=== PATIENT | male | born 1995 | race Caucasian/White ===

== ENCOUNTER 2017-03-30 17:48 | Emergency (ER) | payer BC, OTHER ==
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
[2017-03-30 18:48] LABS: Appearance,Urine Clear (Clear); Bilirubin,Urine Negative (Negative); Glucose,Urine (UA) Negative (Negative); Ketones,Urine Negative (Negative); Leukocyte Esterase,Urine Negative (Negative); Nitrite,Urine Negative (Negative); Protein,Urine Negative (Negative); Specific Gravity,Urine 1.004 (1.001-1.035); UA Billing (MACRO vs. MICRO) CHEM; Urobilinogen,Urine <2.0 mg/dL (<2.0)
[2017-03-30] MEDS ORDERED: DOXYCYCLINE 50 MG CAP PO STA (19:15)
[2017-03-30] MEDS ORDERED: cefTRIAXone 250 MG VIAL IM STA (19:15)
[2017-03-30] MEDS ORDERED: AZITHROMYCIN 250 MG TAB PO STA (19:16)
[2017-03-30 19:52] LABS: Basophils # (A) 0.1 k/uL (0-0.2); Basophils % (A) 1 %; CH 31.7; CHCM 36.8; Eosinophils # (A) 0.3 k/uL (0-0.7); Eosinophils % (A) 4 %; HCT 45.4 % (39.0-53.0); HDW 2.76; HGB 15.9 gm/dL (13.0-17.5); Luc # (Auto) 0.28; Luc % (Auto) 4; Lymphocytes % (A) 42 %; MCH 30.3 pg (25.0-35.0); MCHC 35.1 g/dL (31.0-37.0); MCV 86.4 fL (80.0-100.0); Mean Platelet Volume 8.2; Monocytes # (A) 0.6 k/uL (0-1.0); Monocytes % (A) 8 %; Neutrophils % (A) 42 %; RBC 5.26 m/uL (4.30-5.90); RDW 13.1 % (11.5-15.5); WBC 7.2 k/uL (3.8-10.6); WBC (Perox) 6.95
[2017-03-30 20:04] LABS: AST 47 U/L (17-59); Alkaline Phosphatase 65 U/L (38-126); Anion Gap 5 mmol/L; Blood Urea Nitrogen 12 mg/dL (9-20); Carbon Dioxide 28 mmol/L (22-30); Chloride 104 mmol/L (98-107); Glucose 89 mg/dL (74-99); Non-African American GFR(MDRD) >60 (>60 ml/min/1.73 sqM); Potassium 4.2 mmol/L (3.5-5.1); Sodium 137 mmol/L (137-145); Total Bilirubin 0.4 mg/dL (0.2-1.3); Total Protein 5.9 g/dL (6.3-8.2)
[2017-03-30 20:09] LABS: ALT 93 U/L (21-72)
[2017-03-30 20:28] VITALS: BP 111/59; PULSE 62; RESP 18; TEMP 97.3
== END 2017-03-30 20:52 | disposition home or self-care (01) ==
LOC: EC 17:48
DX: R36.1 Hematospermia (principal); R31.9 Hematuria, unspecified
CPT/HCPCS: 99283; 96372; 36415; 80053; 87591; 87491; 85025; 81003; 87086; J0696

== ENCOUNTER 2018-01-17 01:00 | Emergency (ER) | payer OTHER ==
[2018-01-17] MEDS ORDERED: IBUPROFEN 600 MG TAB PO STA (02:15)
[2018-01-17 02:37] VITALS: BP 115/61; TEMP 97.6
--- NOTE | 2018-01-17 02:39 | XR ---
EXAMINATION TYPE: XR hand complete RT DATE OF EXAM: 01/17/2018 COMPARISON: NONE HISTORY: Right hand pain TECHNIQUE: 3 views FINDINGS: I see no fracture nor dislocation. Metacarpals are intact. There is some soft tissue swelli ng on the dorsum of the hand. IMPRESSION: Negative right hand exam. Soft tissue swelling.
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
[2018-01-17 03:04] VITALS: PULSE 60; RESP 17
== END 2018-01-17 03:04 | disposition home or self-care (01) ==
LOC: EC 01:00
DX: S60.221A Contusion of right hand, initial encounter (principal); Z87.891 Personal history of nicotine dependence; W22.8XXA Striking against or struck by other objects, initial encounter; Y93.89 Activity, other specified
CPT/HCPCS: 99283

== ENCOUNTER 2018-03-28 22:43 | Emergency (ER) | payer OTHER ==
[2018-03-28 22:53] VITALS: BP 121/83; PULSE 75; RESP 16; TEMP 98.1
--- NOTE | 2018-03-28 23:24 | ED ---
ENT HPI - General Chief complaint: Dental/Oral Stated complaint: jaw pain Time Seen by Provider: 03/28/18 22:59 Source: patient, RN notes reviewed Mode of arrival: ambulatory Limitations: no limitations - History of Present Illness Initial comments: This is a 22-year-old male who presents to the emergency department with chief complaint of left-sided jaw pain. Patient reports pain underneath the left side of his jaw for the past 3-4 days. He states that it is uncomfortable and he is having trouble sleeping because of it. He denies any injuries or trauma. Denies any dental pain. Denies any fevers or chills. Denies cough, sinus congestion, runny nose, ear pain, abdominal pain, nausea or vomiting, diarrhea or constipation, shortness of breath or chest pain. Patient states he is generally healthy. - Related Data Home Medications Medication Instructions Recorded Confirmed Acetaminophen Tab [Tylenol Tab] 650 mg PO Q6H PRN 03/28/18 03/28/18 Lysine [l-Lysine] 500 mg PO DAILY 03/28/18 03/28/18 Allergies Allergy/AdvReac Type Severity Reaction Status Date / Time No Known Allergies Allergy Verified 03/28/18 23:11 Review of Systems ROS Statement: Those systems with pertinent positive or pertinent negative responses have been documented in the HPI. ROS Other: All systems not noted in ROS Statement are negative. Past Medical History Past Medical History: Asthma Additional Past Medical History / Comment(s): scoliosis History of Any Multi-Drug Resistant Organisms: None Reported Past Surgical History: No Surgical Hx Reported Past Psychological History: No Psychological Hx Reported Smoking Status: Former smoker Past Alcohol Use History: Occasional Past Drug Use History: None Reported General Exam - General Exam Comments Initial Comments: General: Awake and alert, well-developed; in no apparent distress. HEENT: Head atraumatic, normocephalic. Pupils are equal, round and reactive to light. Extraocular movements intact. Oropharynx moist with mild erythema. No tonsillar enlargement or exudates. Unable to visualize left TM due to cerumen impaction. Right TM is pearly without effusion. Neck: Supple. Normal ROM. Tender left tonsillar and anterior cervical lymphadenopathy. Cardiovascular: Regular rate and rhythm. No murmurs, rubs or gallops. Chest symmetrical. Respiratory: Lungs clear to auscultation bilaterally. No wheezes, rales or rhonchi. Normal respiratory effort with no use of accessory muscles. Musculoskeletal: Normal ROM, no tenderness bilateral upper and lower extremities. Ambulating normally. Skin: [place], warm and dry without rashes or lesions. Neurological: Alert and oriented x3. CN II-XII grossly intact. Speech is fluent and answers are appropriate. No focal neuro deficits. Psychiatric: Normal mood and affect. No overt signs of depression or anxiety noted. Limitations: no limitations Course Vital Signs 03/28/18 22:50 Temperature 98.1 F Pulse Rate 75 Respiratory 16 Rate Blood Pressure 121/83 O2 Sat by Pulse 97 Oximetry Medical Decision Making - Medical Decision Making This is a 22-year-old male who presents to the emergency department with chief complaint of left jaw pain. On physical examination, patient has tender left sided tonsillar and anterior cervical lymphadenopathy. Rest of physical examination is within normal limits. Physical examination His vital signs are stable and he is afebrile. Recommended following up with his primary care provider within 1-2 days. Patient will be discharged home at this time. He is in agreement and voices understanding. All questions answered. Disposition Clinical Impression: Lymphadenopathy Disposition: HOME SELF-CARE Condition: Good Instructions: Lymphadenopathy (ED) Additional Instructions: Please follow up with primary care provider within 1-2 days. Return to emergency department if symptoms should worsen or any concerns arise. Is patient prescribed a controlled substance at d/c from ED?: No Referrals: Nel Jenkins MD [Primary Care Provider] - 1-2 days Time of Disposition: 23:24
== END 2018-03-28 23:33 | disposition home or self-care (01) ==
LOC: EC 22:43
DX: R59.1 Generalized enlarged lymph nodes (principal); R68.84 Jaw pain; Z87.891 Personal history of nicotine dependence; Z79.899 Other long term (current) drug therapy
CPT/HCPCS: 99283

== ENCOUNTER 2018-06-15 23:57 | Emergency (ER) | payer OTHER ==
[2018-06-16 00:03] VITALS: BP 130/82; PULSE 63; RESP 18; TEMP 98.3
[2018-06-16] MEDS ORDERED: KETOROLAC 30 MG/ML 1 ML VIAL IM STA (00:41)
[2018-06-16] MEDS ORDERED: ACET/COD 300 MG/30 MG STARTER PACK 6 TAB BTL PO STA (00:41)
[2018-06-16] MEDS ORDERED: HYDROcodone/APAP 5-325MG 1 EACH TAB PO STA (00:41)
[2018-06-16] MEDS ORDERED: PENICILLIN VK 500MG STARTER 4 TAB BTL PO STA (00:42)
--- NOTE | 2018-06-16 00:43 | ED ---
ENT HPI - General Chief complaint: Dental/Oral Stated complaint: Dental Pain Time Seen by Provider: 06/16/18 00:30 Source: patient Mode of arrival: ambulatory Limitations: no limitations - History of Present Illness Initial comments: 21-year-old male patient presents to the emergency department today for evaluation of left upper dental pain. Patient states that he has a cracked wisdom tooth to the area. States that the pain has been worsening over the last 2-3 days. States that he has seen an oral surgeon for this and does have a plan to have them removed however he has to save a little more money first. Patient states that he has noticed swelling around the area. He denies any fever, chills, difficulty swallowing, or trismus. Patient denies any recent rash , shortness breath, chest pain, abdominal pain, diarrhea, constipation, back pain, numbness, tingling, dizziness, weakness, hematuria, dysuria, urinary urgency, urinary frequency, headache, visual changes, or any other complaints. - Related Data Home Medications Medication Instructions Recorded Confirmed Acetaminophen Tab [Tylenol Tab] 650 mg PO Q6H PRN 03/28/18 03/28/18 Lysine [l-Lysine] 500 mg PO DAILY 03/28/18 03/28/18 Previous Rx's Medication Instructions Recorded Acetaminophen-Codeine 300-30mg 1 tab PO Q6H PRN #12 tablet 06/16/18 [Tylenol #3] Penicillin V Potassium [Pen Vee K] 500 mg PO Q6H #40 tablet 06/16/18 Allergies Allergy/AdvReac Type Severity Reaction Status Date / Time No Known Allergies Allergy Verified 06/16/18 00:03 Review of Systems ROS Statement: Those systems with pertinent positive or pertinent negative responses have been documented in the HPI. ROS Other: All systems not noted in ROS Statement are negative. Past Medical History Past Medical History: Asthma Additional Past Medical History / Comment(s): scoliosis History of Any Multi-Drug Resistant Organisms: None Reported Past Surgical History: No Surgical Hx Reported Past Psychological History: No Psychological Hx Reported Smoking Status: Former smoker Past Alcohol Use History: Occasional Past Drug Use History: None Reported General Exam Limitations: no limitations General appearance: alert, in no apparent distress, other (This is a well- developed, well-nourished adult male patient in no acute distress. Vital signs upon presentation are temperature 98.3F, pulse 63, respirations 18, blood pressure 130/82, pulse ox 98% on room air.) Eye exam: Present: normal appearance, PERRL, EOMI. Absent: scleral icterus, conjunctival injection, periorbital swelling ENT exam: Present: normal exam, mucous membranes moist, other (Patient has what appears to be an impacted was some tooth to the left upper dentition. There is surrounding gingival erythema and hyperplasia. No evidence of drainable abscess.). Absent: normal oropharynx Neck exam: Present: normal inspection. Absent: tenderness, meningismus, lymphadenopathy Respiratory exam: Present: normal lung sounds bilaterally. Absent: respiratory distress, wheezes, rales, rhonchi, stridor Cardiovascular Exam: Present: regular rate, normal rhythm, normal heart sounds. Absent: systolic murmur, diastolic murmur, rubs, gallop, clicks Neurological exam: Present: alert, oriented X3, CN II-XII intact Psychiatric exam: Present: normal affect, normal mood Skin exam: Present: warm, dry, intact, normal color. Absent: rash Course Vital Signs 06/16/18 00:01 Temperature 98.3 F Pulse Rate 63 Respiratory 18 Rate Blood Pressure 130/82 O2 Sat by Pulse 98 Oximetry Medical Decision Making - Medical Decision Making 22-year-old male patient presents to the emergency department today for evaluation of left upper dental pain. Physical examination did reveal gingival erythema and hyperplasia surrounding the left upper wisdom tooth. Patient will be discharged home with prescription for antibiotics and pain management. He is instructed to follow-up with dentistry as soon as possible. Return parameters were discussed in detail. He verbalizes understanding and agrees with this plan. Disposition Clinical Impression: Dental abscess Disposition: HOME SELF-CARE Condition: Good Instructions: Dental Abscess (ED), Toothache (ED) Additional Instructions: Take medication as directed. Do cool compresses to the outside of the face this may help with your pain. Follow-up with your oral surgeon as soon as possible. Return immediately for any new, worsening, or concerning symptoms. Please follow up with the [facility] dental clinic. [facility] [place] [address]. Phone number for new patients or for existing patients. [facility]. Must pay for x-rays then services are free. Call for an appoitnment. Prescriptions: Acetaminophen-Codeine 300-30mg [Tylenol #3] 1 tab PO Q6H PRN #12 tablet PRN Reason: Pain Penicillin V Potassium [Pen Vee K] 500 mg PO Q6H #40 tablet Is patient prescribed a controlled substance at d/c from ED?: Yes When asked, does pt state using other controlled substances?: No If prescribed controlled substance>3 days was MAPS reviewed?: Prescribed <3 Days If opioid is for acute pain is fill amount 7 days or less?: Yes If Rx opioid, was Start Talking consent form obtained?: Yes Referrals: Nel Jenkins MD [Primary Care Provider] - 1-2 days Time of Disposition: 00:43
== END 2018-06-16 00:57 | disposition home or self-care (01) ==
LOC: EC 23:57
DX: K04.7 Periapical abscess without sinus (principal); Z87.891 Personal history of nicotine dependence; Z79.3 Long term (current) use of hormonal contraceptives
CPT/HCPCS: 99283; 96372; J1885

== ENCOUNTER 2018-09-20 20:12 | Emergency (ER) | payer OTHER ==
[2018-09-20 20:30] VITALS: BP 121/72; PULSE 62; RESP 20; TEMP 98.4
[2018-09-20] MEDS ORDERED: KETOROLAC 60 MG/2 ML VIAL IM STA (20:51)
[2018-09-20] MEDS ORDERED: DIAZEPAM 5 MG TAB PO STA (20:53)
--- NOTE | 2018-09-20 20:54 | ED ---
Back Pain HPI - General Chief Complaint: Back Pain/Injury Stated Complaint: Low Back Pain Time Seen by Provider: 09/20/18 20:31 Source: patient, family Limitations: no limitations - History of Present Illness Initial Comments: 22-year-old male presenting today for chief complaint of low back back pain. Patient states he does repetitive moving including lifting at work. He states that there is no specific injury however he had low back pain that extends bandlike across the lumbar spine. Patient states he has experienced this in the past. Patient as a direct trauma, history of cancer, fever or chills night sweats, history of IV drug use, loss of bowel bladder control, radiation of pain down the legs, urinary retention, loss of sensation to lower extremities or muscle weakness of the lower extremities, no recent trave, no history of TB. Patient denies any urgency, frequency, dysuria, hematuria. Patient denies any thoracic or cervical pain. Remaining ROS (-), patient denies any recent shortness of breath, chest pain, abdominal pain, nausea or vomiting, numbness or tingling, constipation or diarrhea, headaches or visual changes, or any other complaints. Upon arrival patient's ambulatory he appears well no signs of acute distress. - Related Data Home Medications Medication Instructions Recorded Confirmed Acetaminophen Tab [Tylenol Tab] 650 mg PO Q6H PRN 03/28/18 03/28/18 Lysine [l-Lysine] 500 mg PO DAILY 03/28/18 03/28/18 Previous Rx's Medication Instructions Recorded Acetaminophen-Codeine 300-30mg 1 tab PO Q6H PRN #12 tablet 06/16/18 [Tylenol #3] Penicillin V Potassium [Pen Vee K] 500 mg PO Q6H #40 tablet 06/16/18 Cyclobenzaprine [Flexeril] 10 mg PO TID PRN 7 Days #21 tab 09/20/18 Ibuprofen 800 mg PO Q8H PRN 7 Days #21 tablet 09/20/18 Allergies Allergy/AdvReac Type Severity Reaction Status Date / Time No Known Allergies Allergy Verified 09/20/18 20:30 Review of Systems ROS Statement: Those systems with pertinent positive or pertinent negative responses have been documented in the HPI. ROS Other: All systems not noted in ROS Statement are negative. Past Medical History Past Medical History: Asthma Additional Past Medical History / Comment(s): scoliosis History of Any Multi-Drug Resistant Organisms: None Reported Past Surgical History: No Surgical Hx Reported Past Psychological History: No Psychological Hx Reported Smoking Status: Former smoker Past Alcohol Use History: Occasional Past Drug Use History: None Reported General Exam - General Exam Comments Initial Comments: General: The patient is awake and alert, in no distress, and does not appear acutely ill. Eye: Pupils are equal, round and reactive to light, extra-ocular movements are intact. No nystagmus. There is normal conjunctiva bilaterally. No signs of icterus. Ears, nose, mouth and throat: There are moist mucous membranes and no oral lesions. Neck: The neck is supple, there is no tenderness or JVD. Cardiovascular: There is a regular rate and rhythm. No murmur, rub or gallop is appreciated. Respiratory: Lungs are clear to auscultation, respirations are non-labored, breath sounds are equal. No wheezes, stridor, rales, or rhonchi. Musculoskeletal: Normal inspection of the cervical thoracic and lumbar spine. There is bandlike paravertebral tenderness to palpation of the lumbar spine. No midline tenderness patient of the cervical thoracic or lumbar spine. Patient is full range of motion at the thoracic and lumbar spine. Negative straight leg bilaterally. Normal ROM, no tenderness of the lower extremities equal and comparison. Strength 5/5 of the upper and lower extremities equal comparison bilaterally. Sensation intact of the lower extremities equal comparison bilaterally no saddle anesthesia. DP pulses equal bilaterally 2+. Neurological: A&O x 3. CN II-XII intact, There are no obvious motor or sensory deficits. Coordination appears grossly intact. Speech is normal. Skin: Skin is warm and dry and no rashes or lesions are noted. Psychiatric: Cooperative, appropriate mood & affect, normal judgment. Limitations: no limitations Course Vital Signs 09/20/18 20:26 Temperature 98.4 F Pulse Rate 62 Respiratory 20 Rate Blood Pressure 121/72 O2 Sat by Pulse 99 Oximetry Medical Decision Making - Medical Decision Making 22-year-old male with history of repetitive movement of the lumbar spine presented today for chief complaint of bilateral low back pain. This is in the lumbar region. There is paravertebral tenderness and muscle tension palpable. Patient given Valium and Toradol. At this time patient has no history and indicative of radiographic imaging. No radicular symptoms. No concerning history of red flags. Pt will be discharged with symptomatic treatment and instruction to f/u with primary care for persistent symptoms. Pt agreeable with plan and discharge, denied questions at this time. Disposition Clinical Impression: Muscle spasm, Back strain Disposition: HOME SELF-CARE Condition: Good Instructions (If sedation given, give patient instructions): Low Back Strain ( ED) Additional Instructions: Please use medication as discussed. Please follow-up with family doctor in the next 2 days. Please return to emergency room if the symptoms increase or worsen or for any other concerns. Prescriptions: Cyclobenzaprine [Flexeril] 10 mg PO TID PRN 7 Days #21 tab PRN Reason: Muscle Spasm Ibuprofen 800 mg PO Q8H PRN 7 Days #21 tablet PRN Reason: Pain Is patient prescribed a controlled substance at d/c from ED?: No Referrals: Nel Jenkins MD [Primary Care Provider] - 1-2 days Time of Disposition: 20:54
== END 2018-09-20 21:07 | disposition home or self-care (01) ==
LOC: EC 20:12
DX: S39.012A Strain of muscle, fascia and tendon of lower back, initial encounter (principal); M62.830 Muscle spasm of back; Z87.891 Personal history of nicotine dependence; Z79.899 Other long term (current) drug therapy; X50.9XXA Other and unspecified overexertion or strenuous movements or postures, initial encounter; Y92.69 Other specified industrial and construction area as the place of occurrence of the external cause; Y99.0 Civilian activity done for income or pay
CPT/HCPCS: 99283; 96372; J1885

== ENCOUNTER → 2019-12-18 | Outpatient (CLI) | payer OTHER ==
[2019-12-19 00:40] LABS: ALT 51 U/L (10-49); AST 31 U/L (14-35); Albumin/Globulin Ratio 1.91 (1.60-3.17); Alkaline Phosphatase 84 U/L (41-126); Bilirubin, Conjugated <0.20 mg/dL (0.20-0.40); Cholesterol 197 mg/dL (0-200); Globulin 2.3 g/dL (1.6-3.3); LDL Cholesterol,Calculated 119.8 mg/dL (0.0-131.0); Total Bilirubin 0.3 mg/dL (0.2-1.2); Total Protein 6.7 g/dL (6.2-8.2)
== END | disposition home or self-care (01) ==
LOC: LABWHC1 13:46
PROVIDERS: ATTEND Internal Medicine
DX: E78.2 Mixed hyperlipidemia (principal); Z82.49 Family history of ischemic heart disease and other diseases of the circulatory system
CPT/HCPCS: 36415; 80061; 80076

== ENCOUNTER 2021-08-22 05:15 | Emergency (ER) | payer OTHER ==
[2021-08-22] MEDS ORDERED: IBUPROFEN 400 MG TAB PO STA (05:35)
--- NOTE | 2021-08-22 06:54 | ED ---
Fever HPI - General Chief Complaint: Fever Stated Complaint: Fever, high heartrate Time Seen by Provider: 08/22/21 05:29 Source: patient Mode of arrival: ambulatory Limitations: no limitations - Related Data Home Medications Medication Instructions Recorded Confirmed Acetaminophen Tab [Tylenol Tab] 650 mg PO Q6H PRN 03/28/18 03/28/18 Lysine [l-Lysine] 500 mg PO DAILY 03/28/18 03/28/18 Previous Rx's Medication Instructions Recorded Acetaminophen-Codeine 300-30mg 1 tab PO Q6H PRN #12 tablet 06/16/18 [Tylenol #3] Penicillin V Potassium [Pen Vee K] 500 mg PO Q6H #40 tablet 06/16/18 Cyclobenzaprine [Flexeril] 10 mg PO TID PRN 7 Days #21 tab 09/20/18 Ibuprofen 800 mg PO Q8H PRN 7 Days #21 tablet 09/20/18 Allergies Allergy/AdvReac Type Severity Reaction Status Date / Time No Known Allergies Allergy Verified 08/22/21 05:24 Review of Systems ROS Statement: Those systems with pertinent positive or pertinent negative responses have been documented in the HPI. ROS Other: All systems not noted in ROS Statement are negative. Past Medical History Past Medical History: Asthma Additional Past Medical History / Comment(s): scoliosis History of Any Multi-Drug Resistant Organisms: None Reported Past Surgical History: No Surgical Hx Reported Past Psychological History: Depression Smoking Status: Never smoker Past Alcohol Use History: Occasional Past Drug Use History: None Reported General Exam Limitations: no limitations Course Vital Signs 08/22/21 05:19 Temperature 100.3 F H Pulse Rate 100 Respiratory 24 Rate Blood Pressure 112/57 O2 Sat by Pulse 95 Oximetry Medical Decision Making - Lab Data Lab Results 08/22/21 08/22/21 Range/Units 06:02 06:02 Coronavirus (PCR) Detected A (Not Detectd) Influenza Type A RNA Not Detected (Not Detectd) Influenza Type B (PCR) Not Detected (Not Detectd) Disposition Clinical Impression: COVID-19 Disposition: HOME SELF-CARE Condition: Fair Instructions (If sedation given, give patient instructions): Coronavirus Disease 2019 (COVID-19) Is patient prescribed a controlled substance at d/c from ED?: No Referrals: Nel Jenkins MD [Primary Care Provider] - 1-2 days
[2021-08-22 07:45] VITALS: BP 109/68; PULSE 89; RESP 20; TEMP 97.9
== END 2021-08-22 07:45 | disposition home or self-care (01) ==
LOC: EC 05:15
DX: U07.1 COVID-19 (principal); J45.909 Unspecified asthma, uncomplicated; M41.9 Scoliosis, unspecified; F32.A Depression, unspecified; Z72.89 Other problems related to lifestyle
CPT/HCPCS: 87502; 87635; 99283

== ENCOUNTER 2022-02-11 19:21 | Emergency (ER) | payer OTHER ==
[2022-02-11 19:28] VITALS: BP 118/78; PULSE 61; RESP 16; TEMP 98
[2022-02-11] MEDS ORDERED: MAG HYDROX/AL HYDROX/SIMETH 30 ML, HYOSCYAMINE ELIXIR 10 ML, LIDOCAINE VISCOUS 2% 10 ML PO STA ×3 (19:53)
== END 2022-02-11 20:04 | disposition left against medical advice (07) ==
LOC: EC 19:21
DX: Z53.9 Procedure and treatment not carried out, unspecified reason (principal)
CPT/HCPCS: 99499